=== PATIENT | female | born 1960 ===

== ENCOUNTER 2017-04-26 21:59 | Emergency (ER) | payer SELFPAY ==
[~2017-04-26] VITALS: Ht 160 cm; Wt 69.0 kg
[2017-04-26] MEDS ORDERED: IBUPROFEN 600MG TABLET PO ONE (23:30)
[2017-04-27 00:10] VITALS: BP 126/71
== END 2017-04-27 01:05 | disposition home or self-care (01) ==
LOC: ER 23:27
DX: R07.89 Other chest pain (principal)
CPT/HCPCS: 71101; 99283; 99284